=== PATIENT | male | born 1965 | race Two or more races ===

== ENCOUNTER 2018-06-12 19:19 | Inpatient (IN) | payer MEDICARE, MEDICAID ==
[~2018-06-12] VITALS: Ht 175.3 cm; Wt 72.0 kg
[2018-06-12] MEDS ORDERED: ASPirin-EC 325mg tab PO ONE (20:00)
[2018-06-12] MEDS ORDERED: LORazepam 0.5 MG TAB PO ONE (20:00)
[2018-06-12 20:15] LABS: Basophils # (auto) 0.1 uL; Basophils % (auto) 1.2 % (0.0-2.0); Eosinophils # (auto) 0.1 uL; Eosinophils % (auto) 0.8 % (0.0-7.0); Hematocrit 38.9 % (41.0-53.0); Hemoglobin 13.7 g/dL (13.5-17.5); Lymphocytes # (auto) 1.8 uL; Lymphocytes % (auto) 27.7 % (10.0-50.0); Mean Corpuscular Hemoglobin 33.5 pg (28.0-32.0); Mean Corpuscular Hgb Conc. 35.2 g/dL (32.0-36.0); Mean Corpuscular Volume 95.2 fL (80.0-100.0); Monocytes # (auto) 0.7 uL; Monocytes % (auto) 10.4 % (0.0-12.0); Neutrophils # (auto) 3.9 uL; Neutrophils % (auto) 59.9 % (37.0-80.0); Nucleated Red Blood Cells % 0.1 %; Platelet Count (auto) 196 10^3/uL (140-450); Red Blood Cells 4.08 10^6/uL (4.5-5.90); Red Cell Distribution Width 13.9 % (11.8-14.3); White Blood Cell 6.5 10^3/uL (4.4-10.8)
[2018-06-12 20:30] LABS: Alanine Aminotransferase 47 U/L (16-61); Albumin 3.8 g/dL (3.4-5.0); Anion Gap 10 (5-15); Aspartate Aminotransferase 20 U/L (15-37); BUN/Creatinine Ratio 19.5; Blood Urea Nitrogen 25 mg/dL (7-18); Calcium 8.6 mg/dL (8.5-10.1); Carbon Dioxide 28 mmol/L (21-32); Chloride 102 mmol/L (98-107); GFR African American 76 mL/min; GFR Non-African American 63 mL/min; Glucose 245 mg/dL (74-106); Potassium 4.1 mmol/L (3.5-5.1); Sodium 140 mmol/L (136-145)
[2018-06-12 20:35] LABS: Alkaline Phosphatase 89 U/L (45-117); Bilirubin, Total 0.3 mg/dL (0.2-1.0); Total Protein 7.4 g/dL (6.4-8.2)
[2018-06-12 22:30] LABS: Partial Thromboplastin Time 34.1 sec (23.78-33.04); Prothrombin Time 30.2 sec (9.27-12.13)
[2018-06-12] MEDS ORDERED: DEXTROSE (50%) 50ML SYRG IV PRN (23:00)
[2018-06-12] MEDS ORDERED: TEMAZEPAM 15 MG CAP PO PRN (23:00)
[2018-06-12] MEDS ORDERED: ACETAMINOPHEN 325 MG TAB PO PRN (23:00)
[2018-06-12] MEDS ORDERED: ONDANSETRON HCL 4 MG/2 ML VIAL IV PRN (23:00)
[2018-06-12] MEDS ORDERED: MORPHINE SULF INJ 2 MG/ML SYRINGE 1ML IV PRN (23:00)
[2018-06-12 23:51] LABS: Urine Bacteria NONE SEEN /hpf (None Seen); Urine Blood Negative /uL (Negative); Urine Hyaline Cast MOD /lpf (0 - 2); Urine Mucus FEW (None Seen); Urine Specific Gravity 1.021 (1.001-1.035); Urine WBC <1 /hpf (0 - 3)
[2018-06-13] MEDS: InsuLIN REG 1unit/0.01ml Soln (100units/ml) SC SCH ×4 (00:24→17:45)
[2018-06-13] MEDS: ACCU-CHEK COMFORT CURVE STRIP VI SCH ×4 (00:24→17:45)
[2018-06-13 07:31] LABS: Basophils # (auto) 0 uL; Basophils % (auto) 0.6 % (0.0-2.0); Eosinophils # (auto) 0.1 uL; Eosinophils % (auto) 1.2 % (0.0-7.0); Hematocrit 35.2 % (41.0-53.0); Hemoglobin 12.5 g/dL (13.5-17.5); Lymphocytes # (auto) 1.5 uL; Lymphocytes % (auto) 27.4 % (10.0-50.0); Mean Corpuscular Hemoglobin 33.5 pg (28.0-32.0); Mean Corpuscular Hgb Conc. 35.4 g/dL (32.0-36.0); Mean Corpuscular Volume 94.6 fL (80.0-100.0); Monocytes # (auto) 0.6 uL; Neutrophils # (auto) 3.3 uL; Neutrophils % (auto) 60.8 % (37.0-80.0); Nucleated Red Blood Cells % 0.1 %; Platelet Count (auto) 149 10^3/uL (140-450); Red Blood Cells 3.72 10^6/uL (4.5-5.90); Red Cell Distribution Width 13.4 % (11.8-14.3); White Blood Cell 5.5 10^3/uL (4.4-10.8)
[2018-06-13 07:56] LABS: Albumin 3.3 g/dL (3.4-5.0); BUN/Creatinine Ratio 22.2; Bilirubin, Total 0.3 mg/dL (0.2-1.0); Calcium 8.8 mg/dL (8.5-10.1); Potassium 3.5 mmol/L (3.5-5.1); Total Protein 6.6 g/dL (6.4-8.2)
[2018-06-13] MEDS: CARVEDILOL 12.5 MG TAB PO SCH ×3 (08:00→17:45)
[2018-06-13] MEDS: NITROGLYCERIN 0.4 MG SL TAB SL PRN ×4 (09:15→17:21)
[2018-06-13 09:34] LABS: INR 3.43 (0.9-1.15); Partial Thromboplastin Time 34.5 sec (23.78-33.04); Prothrombin Time 34.2 sec (9.27-12.13)
[2018-06-13] MEDS: AMIODARONE HCL 200 MG TAB PO SCH (10:00)
[2018-06-13] MEDS: FAMOTIDINE 20 MG TAB PO SCH ×2 (10:00→21:45)
[2018-06-13] MEDS: FUROSEMIDE 40 MG TAB PO SCH (10:00)
[2018-06-13] MEDS: DIGOXIN 0.125 MG TAB PO SCH (10:00)
[2018-06-13] MEDS: SPIRONOLACTONE 25 MG TAB PO SCH (10:00)
[2018-06-13] MEDS: POTASSIUM CHL 10 Meq TABLET PO SCH (10:00)
[2018-06-13] MEDS: HYDROcodone-ACET 5/325MG TAB PO PRN ×2 (12:10→17:46)
[2018-06-13 14:21] VITALS: BP 132/78
[2018-06-13] MEDS ORDERED: WARF5TAB71 PO (14:34)
[2018-06-13] MEDS ORDERED: MAGN400T5 PO (14:34)
[2018-06-13] MEDS ORDERED: CARV12.544 PO (14:34)
[2018-06-13] MEDS ORDERED: AMIO200T33 PO (14:34)
[2018-06-13] MEDS ORDERED: SPIR50TA5 PO (14:37)
[2018-06-13 17:14] VITALS: BP 125/71
[2018-06-13] MEDS: LORazepam 0.5 MG TAB PO PRN (18:22)
[2018-06-13 22:00] VITALS: BP 133/75
[2018-06-14] MEDS: InsuLIN REG 1unit/0.01ml Soln (100units/ml) SC SCH ×4 (00:29→18:00)
[2018-06-14] MEDS: ACCU-CHEK COMFORT CURVE STRIP VI SCH ×4 (00:29→18:00)
[2018-06-14 04:50] VITALS: BP 113/71
[2018-06-14] MEDS: CARVEDILOL 12.5 MG TAB PO SCH ×2 (08:00→18:00)
[2018-06-14 08:02] LABS: Basophils # (auto) 0 uL; Basophils % (auto) 0.8 % (0.0-2.0); Eosinophils # (auto) 0.1 uL; Eosinophils % (auto) 1.3 % (0.0-7.0); Hematocrit 36.2 % (41.0-53.0); Hemoglobin 12.7 g/dL (13.5-17.5); Lymphocytes # (auto) 1.5 uL; Lymphocytes % (auto) 30.2 % (10.0-50.0); Mean Corpuscular Hemoglobin 32.6 pg (28.0-32.0); Mean Corpuscular Volume 93.3 fL (80.0-100.0); Monocytes # (auto) 0.5 uL; Monocytes % (auto) 9.4 % (0.0-12.0); Neutrophils % (auto) 58.3 % (37.0-80.0); Platelet Count (auto) 147 10^3/uL (140-450); Red Blood Cells 3.88 10^6/uL (4.5-5.90); Red Cell Distribution Width 13.6 % (11.8-14.3); White Blood Cell 5.1 10^3/uL (4.4-10.8)
[2018-06-14 08:07] LABS: INR 2.5 (0.9-1.15); Partial Thromboplastin Time 35.2 sec (23.78-33.04); Prothrombin Time 25.4 sec (9.27-12.13)
[2018-06-14 08:23] LABS: BUN/Creatinine Ratio 18.1; Bilirubin, Total 0.2 mg/dL (0.2-1.0); Calcium 8.2 mg/dL (8.5-10.1); Total Protein 6.2 g/dL (6.4-8.2)
[2018-06-14 08:41] VITALS: BP 131/76
[2018-06-14] MEDS: LORazepam 0.5 MG TAB PO PRN (09:33)
[2018-06-14] MEDS: DIGOXIN 0.125 MG TAB PO SCH (09:34)
[2018-06-14] MEDS: POTASSIUM CHL 10 Meq TABLET PO SCH (09:34)
[2018-06-14] MEDS: FAMOTIDINE 20 MG TAB PO SCH (09:35)
[2018-06-14] MEDS: AMIODARONE HCL 200 MG TAB PO SCH (09:35)
[2018-06-14] MEDS: FUROSEMIDE 40 MG TAB PO SCH (09:35)
[2018-06-14] MEDS: SPIRONOLACTONE 25 MG TAB PO SCH (09:39)
[2018-06-14] MEDS ORDERED: IBUPROFEN 600 MG TAB PO PRN (10:00)
[2018-06-14 13:00] VITALS: BP 141/89
[2018-06-14 14:00] VITALS: BP 131/76
[2018-06-14 16:48] VITALS: BP 131/80
[2018-06-14] MEDS ORDERED: WARFARIN SODIUM 5 MG TAB PO ONE (17:00)
== END 2018-06-14 18:45 | disposition home or self-care (01) | DRG 206 ==
LOC: ER 19:24 → TELE 19:25 → TELE-CENTR 06-13 15:22
PROVIDERS: ADMIT Nurse Practitioner; ATTEND Internal Medicine
DX: M94.0 Chondrocostal junction syndrome [Tietze] (principal); D68.69 Other thrombophilia; E44.1 Mild protein-calorie malnutrition; I50.42 Chronic combined systolic (congestive) and diastolic (congestive) heart failure; E78.5 Hyperlipidemia, unspecified; E11.9 Type 2 diabetes mellitus without complications; F41.9 Anxiety disorder, unspecified; I11.0 Hypertensive heart disease with heart failure; I48.91 Unspecified atrial fibrillation; Z80.1 Family history of malignant neoplasm of trachea, bronchus and lung; Z68.23 Body mass index [BMI] 23.0-23.9, adult; Z82.49 Family history of ischemic heart disease and other diseases of the circulatory system; Z59.0 Homelessness
CPT/HCPCS: 36415; 71045; 80053; 81001; 82962; 83036; 83735; 83880; 84484; 85025; 85610; 85730; 93005; 93306; 96374; 96375; 97163; J1815; J2405